=== PATIENT | male | born 1970 | race Caucasian/White ===

== ENCOUNTER 2018-09-17 06:25 | Day surgery (SDC) | payer MEDICARE, MEDICAID ==
[~2018-09-17 06:25] MED LIST: AMLODIPINE5 MG PO; ATENOLOL25 MG PO; BACTRIM DS1 TAB PO; CEPHALEXIN500 MG OR; COZAAR50 MG OR; FLEXERIL PO; FLEXERIL10 MG PO; GABAPENTIN400 M2 PO; INDOCIN50 MG/CAP PO; KEFLEX500 MG PO; KENALOG-4040 MG/ML; KENALOG-4040 MG/ML IJ; LORTAB 5 OR; LORTAB 5/3255 MG PO; MELOXICAM15 MG PO; NEXIUM40 MG PO; PRILOSEC20 MG PO; RANITIDINE150 M1 PO
[2018-09-17 07:54] VITALS: BP 136/84
[2018-09-23] MEDS ORDERED: PERCOCET 5/325M1 TAB PO (10:51)
== END 2018-09-17 08:32 | disposition home or self-care (01) ==
LOC: ORM 06:25
PROVIDERS: ATTEND Anesthesiology Pain Medicine
PROC: 3E0T3BZ Introduction of Anesthetic Agent into Peripheral Nerves and Plexi, Percutaneous Approach (ICD-10-PCS; principal; 2018-09-17)
PROC: 3E0T33Z Introduction of Anti-inflammatory into Peripheral Nerves and Plexi, Percutaneous Approach (ICD-10-PCS; 2018-09-17)
PROC: BR161ZZ Fluoroscopy of Lumbar Facet Joint(s) using Low Osmolar Contrast (ICD-10-PCS; 2018-09-17)
PROC: 3E0T3BZ Introduction of Anesthetic Agent into Peripheral Nerves and Plexi, Percutaneous Approach (ICD-10-PCS; 2018-09-17)
PROC: 3E0T33Z Introduction of Anti-inflammatory into Peripheral Nerves and Plexi, Percutaneous Approach (ICD-10-PCS; 2018-09-17)
PROC: 3E0T3BZ Introduction of Anesthetic Agent into Peripheral Nerves and Plexi, Percutaneous Approach (ICD-10-PCS; 2018-09-17)
PROC: 3E0T33Z Introduction of Anti-inflammatory into Peripheral Nerves and Plexi, Percutaneous Approach (ICD-10-PCS; 2018-09-17)
PROC: 3E0U33Z Introduction of Anti-inflammatory into Joints, Percutaneous Approach (ICD-10-PCS; 2018-09-17)
PROC: 3E0U3BZ Introduction of Anesthetic Agent into Joints, Percutaneous Approach (ICD-10-PCS; 2018-09-17)
DX: M54.5 Low back pain (principal)
CPT/HCPCS: 64493; 64450 ×2; 64494; 64495; G0260

== ENCOUNTER 2018-10-01 05:58 | Day surgery (SDC) | payer MEDICARE, MEDICAID ==
[~2018-10-01 05:58] MED LIST changes: +PERCOCET 5/325M1 TAB PO
[2018-10-01 07:23] VITALS: BP 142/76
[2018-10-08] MEDS ORDERED: PERCOCET 5/325M1 TAB PO (07:13)
== END 2018-10-01 07:35 | disposition home or self-care (01) ==
LOC: ORM 05:58
PROVIDERS: ATTEND Anesthesiology Pain Medicine
PROC: 3E0T33Z Introduction of Anti-inflammatory into Peripheral Nerves and Plexi, Percutaneous Approach (ICD-10-PCS; principal; 2018-10-01)
PROC: 3E0T3BZ Introduction of Anesthetic Agent into Peripheral Nerves and Plexi, Percutaneous Approach (ICD-10-PCS; 2018-10-01)
PROC: 3E0T33Z Introduction of Anti-inflammatory into Peripheral Nerves and Plexi, Percutaneous Approach (ICD-10-PCS; 2018-10-01)
PROC: 3E0T3BZ Introduction of Anesthetic Agent into Peripheral Nerves and Plexi, Percutaneous Approach (ICD-10-PCS; 2018-10-01)
PROC: 3E0T33Z Introduction of Anti-inflammatory into Peripheral Nerves and Plexi, Percutaneous Approach (ICD-10-PCS; 2018-10-01)
PROC: 3E0T3BZ Introduction of Anesthetic Agent into Peripheral Nerves and Plexi, Percutaneous Approach (ICD-10-PCS; 2018-10-01)
PROC: BR161ZZ Fluoroscopy of Lumbar Facet Joint(s) using Low Osmolar Contrast (ICD-10-PCS; 2018-10-01)
DX: M54.5 Low back pain (principal); M46.1 Sacroiliitis, not elsewhere classified

== ENCOUNTER 2018-10-29 08:09 | Day surgery (SDC) | payer MEDICARE, MEDICAID ==
[~2018-10-29 08:09] MED LIST changes: +PERCOCET1 TA2 PO
[2018-10-29 12:38] VITALS: BP 120/81
== END 2018-10-29 10:40 | disposition home or self-care (01) ==
LOC: ORM 08:09
PROVIDERS: ATTEND Anesthesiology Pain Medicine
PROC: 3E0T3TZ Introduction of Destructive Agent into Peripheral Nerves and Plexi, Percutaneous Approach (ICD-10-PCS; principal; 2018-10-29)
PROC: BR161ZZ Fluoroscopy of Lumbar Facet Joint(s) using Low Osmolar Contrast (ICD-10-PCS; 2018-10-29)
DX: M54.5 Low back pain (principal)

== ENCOUNTER 2018-11-19 07:41 | Day surgery (SDC) | payer MEDICARE, MEDICAID ==
[~2018-11-19] VITALS: Ht 185.4 cm; Wt 116.1 kg
[2018-11-19 10:10] VITALS: BP 107/73
== END 2018-11-19 10:28 | disposition home or self-care (01) ==
LOC: ORM 07:41
PROVIDERS: ATTEND Anesthesiology Pain Medicine
PROC: 3E0T3TZ Introduction of Destructive Agent into Peripheral Nerves and Plexi, Percutaneous Approach (ICD-10-PCS; principal; 2018-11-19)
DX: M54.5 Low back pain (principal)

== ENCOUNTER 2019-01-01 06:31 | Day surgery (SDC) | payer MEDICARE, OTHER ==
[~2019-01-01 06:31] MED LIST changes: +OXYCODONE HCL5 MG PO
[2019-01-01 08:48] VITALS: BP 121/69
== END 2019-01-01 08:55 | disposition home or self-care (01) ==
LOC: ENDO 06:31 → ORM 09:00
PROVIDERS: ATTEND Surgery
PROC: 0DB98ZX Excision of Duodenum, Via Natural or Artificial Opening Endoscopic, Diagnostic (ICD-10-PCS; principal; 2019-01-01)
PROC: 0DB78ZX Excision of Stomach, Pylorus, Via Natural or Artificial Opening Endoscopic, Diagnostic (ICD-10-PCS; 2019-01-01)
PROC: 0DB48ZX Excision of Esophagogastric Junction, Via Natural or Artificial Opening Endoscopic, Diagnostic (ICD-10-PCS; 2019-01-01)
DX: K21.0 Gastro-esophageal reflux disease with esophagitis (principal); K44.9 Diaphragmatic hernia without obstruction or gangrene; K29.80 Duodenitis without bleeding; I10 Essential (primary) hypertension; F17.210 Nicotine dependence, cigarettes, uncomplicated

== ENCOUNTER 2019-07-29 | Day surgery (SDC) | payer MEDICARE, OTHER ==
[~2019-07-29] MED LIST changes: +DICLOFENAC75 MG PO
[2019-09-15] MEDS ORDERED: ALLERGY NA50 MCG/ACT (12:35)
[2019-09-15] MEDS ORDERED: ONDANSETRON4 MG PO (12:36)
[2019-09-15] MEDS ORDERED: GABAPENTIN100 MG PO (12:36)
== END 2019-07-29 09:45 | disposition home or self-care (01) ==
DX: M54.5 Low back pain (principal); M12.9 Arthropathy, unspecified

== ENCOUNTER 2019-08-12 | Day surgery (SDC) | payer MEDICARE, OTHER ==
[2019-08-12] MEDS ORDERED: LOSARTAN POTASS50 MG PO (06:54)
[2019-09-15] MEDS ORDERED: ALLERGY NA50 MCG/ACT (12:35)
[2019-09-15] MEDS ORDERED: GABAPENTIN100 MG PO (12:36)
[2019-09-15] MEDS ORDERED: ONDANSETRON4 MG PO (12:36)
== END 2019-08-12 09:00 | disposition home or self-care (01) ==
DX: M54.5 Low back pain (principal); M12.9 Arthropathy, unspecified

== ENCOUNTER 2020-02-23 15:15 | Emergency (ER) | payer MEDICARE, OTHER ==
[~2020-02-23] VITALS: Ht 185.4 cm; Wt 121.4 kg
[~2020-02-23 15:15] MED LIST changes: +ALLERGY NA50 MCG/ACT; +GABAPENTIN100 MG PO; +LOSARTAN POTASS50 MG PO; +ONDANSETRON4 MG PO
[2020-02-23 15:59] LABS: HEMATOCRIT 52.4 % (39.0-50.0); HEMOGLOBIN 16.9 g/dl (14.0-18.0); IMMATURE GRANULOCYTES 0.5 % (0.0-5.0); MEAN CELL VOLUME 85.6 fL CALC (80.0-100.0); MEAN CORPUSCULAR HGB 27.6 pG CALC (26.0-32.0); MEAN CORPUSCULAR HGB CONC 32.3 g/dL CAL (32.0-36.0); NEUT# 8.3 thou/uL (1.82-7.42); RED BLOOD COUNT 6.12 mill/uL (4.70-6.10); RED CELL DISTRI WIDTH 13.4 % (11.5-15.5)
[2020-02-23 16:16] LABS: ANION GAP 13 (6-22 (CALC)); BUN 11 mg/dL (9-20); BUN/CREATININE RATIO 12 (12-20 (CALC)); CARBON DIOXIDE 25 mmol/l (22-30); CHLORIDE 106 mmol/l (95-108); CREATININE 0.9 mg/dL (0.7-1.3); GFR > 60 ML/MIN (>=60 (CALC)); GFR FOR AFR.AMER. > 60 ML/MIN (>=60 (CALC)); POTASSIUM 4.3 mmol/l (3.5-5.1); SODIUM 140 mmol/l (137-146)
[2020-02-23 17:10] VITALS: BP 152/82
== END 2020-02-23 17:12 | disposition home or self-care (01) ==
LOC: ED 15:15
PROVIDERS: Family Medicine
DX: R51 Headache (principal); I10 Essential (primary) hypertension; R94.31 Abnormal electrocardiogram [ECG] [EKG]

== ENCOUNTER 2022-03-07 07:08 | Day surgery (SDC) | payer MEDICARE, OTHER ==
[~2022-03-07] VITALS: Ht 185.4 cm; Wt 122.5 kg
[~2022-03-07 07:08] MED LIST changes: +BYSTOLIC5 MG PO; +CLARITIN10 M1 PO; +ELIQUIS2.5 MG PO; +PERCOCET 10/31 COMBO PO; +PREVACID30 M3 PO; +WELLBUTRIN XL300 MG PO
[2022-03-07 09:36] VITALS: BP 105/52
== END 2022-03-07 09:35 | disposition home or self-care (01) ==
LOC: ORM 07:08
PROVIDERS: ATTEND Physical Medicine & Rehabilitation
DX: M47.816 Spondylosis without myelopathy or radiculopathy, lumbar region (principal); G89.4 Chronic pain syndrome

== ENCOUNTER 2022-04-03 10:38 | Emergency (ER) | payer MEDICARE, OTHER ==
[~2022-04-03] VITALS: Ht 185.4 cm; Wt 123.0 kg
[2022-04-03 12:15] VITALS: BP 158/108
[2022-04-03 12:31] VITALS: BP 173/117
[2022-04-03] MEDS ORDERED: PREDNISONE10 MG PO (13:37)
[2022-04-03] MEDS ORDERED: NAPROXEN500 MG PO (13:37)
[2022-04-03 13:47] VITALS: BP 173/117
== END 2022-04-03 13:50 | disposition home or self-care (01) ==
LOC: ED 10:38
DX: S33.5XXA Sprain of ligaments of lumbar spine, initial encounter (principal); I10 Essential (primary) hypertension; M54.50 Low back pain, unspecified; G89.29 Other chronic pain; F17.210 Nicotine dependence, cigarettes, uncomplicated; X50.1XXA Overexertion from prolonged static or awkward postures, initial encounter

== ENCOUNTER 2022-04-18 06:59 | Day surgery (SDC) | payer MEDICARE, OTHER ==
[~2022-04-18] VITALS: Ht 185.4 cm; Wt 122.5 kg
[~2022-04-18 06:59] MED LIST changes: +NAPROXEN500 MG PO; +PREDNISONE10 MG PO
[2022-04-18] MEDS ORDERED: BYSTOLIC5 MG PO (07:57)
[2022-04-18] MEDS ORDERED: ESCITALOPRAM OX10 MG PO (08:20)
[2022-04-18 09:47] VITALS: BP 110/64
== END 2022-04-18 09:38 | disposition home or self-care (01) ==
LOC: ORM 06:59
PROVIDERS: ATTEND Physical Medicine & Rehabilitation
DX: M62.830 Muscle spasm of back (principal)